=== PATIENT | male | born 1985 | race Caucasian/White ===

== ENCOUNTER 2022-05-15 07:28 | Emergency (ER) | payer BC ==
[~2022-05-15] VITALS: Ht 190.5 cm; Wt 99.7 kg
[~2022-05-15 07:28] MED LIST: ACHD5005 PO; DOXY100C2 PO; IBUP800T26 PO; LEVO500T69 PO; ONDA8TAB13 PO; PHEN200T27 PO
--- NOTE | 2022-05-15 07:59 | ED General ---
General Chief Complaint: Dental Problems/Pain Stated Complaint: FACIAL SWELLING Nursing Triage Note: PT TO RM 5 WITH CC OF R SIDE FACIAL SWELLING. PT BELIEVES HAS HAD A TOOTH ABSCESS THAT BEGAN A COUPLE OF DAYS AGO. PT REPORTS FACE SWELLING BEGAIN THIS AM. Source of Information: Patient Exam Limitations: No Limitations (DEVANG RAHMAN MED STUDENT) History of Present Illness Date Seen by Provider: May 15, 2022 Time Seen by Provider: 07:45 Initial Comments Miguel Ángel Zavala is a 36 yo male who presents with right sided facial swelling for the last two days. He has hx of dental abscesses, but no other significant medical hx. Pt reports a few days a go he began to have soreness in his right cheek and over last night he noticed increased swelling, so he came in to ED. Pt reports the pain/pressure in his right upper cheek is a 7/10. He has minimal pain in his jaw. Pt denies injury to this area. Denies any insect bites or stings, but reports he does spend time outside, so he could've been bit by a tick. He has a hx of abscessed teeth and losing his teeth with the last episode being one year ago. Pt reports he previously took abx that he got from his sister for this. Pt denies any tooth pain currently. Denies changes in vision in either eye. Pt denies fever, chills, recent illness or sick contacts, CP, SOA, cough, sinus congestion, sore throat, N/V/D, abdominal pain, dysuria or frequency. Pt reports he still has his tonsils and adenoids. Timing/Duration: 1-2 Days Associated Systoms: No Chest Pain, No Cough, No Fever/Chills; Headaches; No Shortness of Air (DEVANG RAHMAN MED STUDENT) Allergies and Home Medications Allergies Coded Allergies: No Known Drug Allergies (Unverified , 12/23/13) Patient Home Medication List Home Medication List Reviewed: Yes (KILO BOLES MD) Doxycycline Hyclate (Doxycycline Hyclate) 100 Mg Capsule, 1 EACH PO BID Prescribed by: ORTIZ CHIRINOS on 12/23/13 1343 Hydrocodone Bit/Acetaminophen (Lortab 5 Mg Tablet) 1 Each Tablet, 1 EACH PO Q4H PRN for PAIN Prescribed by: ORTIZ CHIRINOS on 12/23/13 1343 Ibuprofen (Ibuprofen) 800 Mg Tablet, 800 MG PO q8h PRN for PAIN Prescribed by: ORTIZ CHIRINOS on 12/23/13 1343 Levofloxacin (Levaquin 500 Mg) 500 Mg Tab, 1 EACH PO DAILY Prescribed by: ORTIZ CHIRINOS on 12/23/13 1343 Ondansetron (Ondansetron Odt) 8 Mg Tab.rapdis, 8 MG PO Q6H PRN for NAUSEA Prescribed by: ORTIZ CHIRINOS on 12/23/13 1343 Penicillin V Potassium (Penicillin V Potassium) 500 Mg Tablet, 500 MG PO QID Prescribed by: KILO BOLES on 05/15/22 0824 Phenazopyridine Hcl (Pyridium) 200 Mg Tablet, 1 EACH PO TID PRN PRN for SPASMS Prescribed by: ORTIZ CHIRINOS on 12/23/13 1343 Review of Systems Review of Systems Constitutional: No chills, No fever EENTM: No blurred vision, No double vision, No eye pain, No vision loss, No dental problems, No mouth pain, No mouth swelling, No nose congestion, No nose pain, No throat pain Respiratory: No cough, No short of breath Gastrointestinal: No abdominal pain, No constipation, No diarrhea, No nausea, No vomiting Genitourinary: No dysuria, No frequency Musculoskeletal: No joint swelling, No muscle pain Skin: No lesions, No lumps, No rash Psychiatric/Neurological: Headache; Denies Numbness, Denies Paresthesia Hematologic/Lymphatic: No Symptoms Reported Immunological/Allergic: no symptoms reported (DEVANG RAHMAN) Past Tzawpvf-Kdfoyl-Lqnuhm Hx Patient Social History Tobacco Use?: Yes Tobacco type used: Cigarettes Smoking Status: Current Everyday Smoker Substance use?: No Alcohol Use?: No Pt feels they are or have been: No (DEVANG RAHMAN STUDENT) Past Medical History Reproductive Disorders: No Hepatitis Adverse Reaction/Blood Tranf: No (DEVANG RAHMAN) Physical Exam Vital Signs Vital Signs - First Documented 05/15/22 07:38 Temp 36.8 Pulse 82 Resp 14 B/P (MAP) 178/125 (142) Pulse Ox 100 O2 Delivery Room Air (KILO BOLES MD) Vital Signs Capillary Refill : Less Than 3 Seconds (DEVANG RAHMAN) Height, Weight, BMI Height: 6'3" Weight: 200lbs. oz. 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 Skin: Normal Color, Warm/Dry Lymphatic: No Adenopathy (DEVANG RAHMAN MED STUDENT) Progress/Results/Core Measures Suspected Sepsis SIRS Temperature: Pulse: 82 Respiratory Rate: 14 Blood Pressure 178 /125 Mean: 142 (DEVANG RAHMAN MED STUDENT) Results/Orders Vital Signs/I&O 05/15/22 05/15/22 07:38 08:31 Temp 36.8 Pulse 82 82 Resp 14 14 B/P (MAP) 178/125 (142) 178/125 Pulse Ox 100 100 O2 Delivery Room Air Room Air (KILO BOLES MD) Vital Signs/I&O Capillary Refill : Less Than 3 Seconds (DEVANG RAHMAN MED STUDENT) Blood Pressure Mean: 142 Progress Note : Time: 08:16 Progress Note 36yo male with right sided facial swelling and right maxiallry discomfort onset in the night. No significant pain. no fevers, chills, nasal drainage or congestion. Has some cavities and a broken molar on that upper right side. Also of note failry significantly elevated blood pressure that has never been addressed. Asymptomatic from that. No airway/swallowing difficulties. Exam remarkable for right upper molar #3 fractured and just lateral to this a little fullness along the gum line/buccal mucosa. No fluctuance or visible edema. a little tender to touch there. I do not believe there is enough fullness to actually drain - will place on antibiotics and have him follow up with his dentist. Precautions to return - if worsening swelling, facial erythema or fever to come back. Patient encouraged to see PCP for BP management. He verbalizes understanding - all questions are sought and answered. (KILO BOLES MD) Departure Impression Primary Impression: Dental abscess Additional Impression: High blood pressure Qualified Codes: I10 - Essential (primary) hypertension Disposition: 01 HOME, SELF-CARE Condition: Stable Departure-Patient Inst. Decision time for Depature: 08:21 (KILO BOLES MD) Referrals: NO,LOCAL PHYSICIAN (PCP/Family) Primary Care Physician Patient Instructions: Tooth Abscess ED, High Blood Pressure in Adults Add. Discharge Instructions: Dawson well and at least twice a day. Use a good oral rinse such as Listerene daily. Antibiotics - Penicillin V 500mg 4 times a day for 10 days. Please finish the entire course. Even when symptoms are improved - continue to finish out the antibiotics. If after 2 full days on the antibiotics, you are having increased swelling, redness or fever come back to the Emergency Department for re-evaluation. Please call for a dental appointment for follow up today. Please see a family doctor for further evaluation and management of you blood pressure. Scripts Penicillin V Potassium (Penicillin V Potassium) 500 Mg Tablet 500 MG PO QID for 10 Days, #40 TAB Prov: KILO BOLES MD 05/15/22 Verification and Attestation of Medical Student E/M Service A medical student performed and documented this service in my presence. I reviewed and verified all information documented by the medical student and made modifications to such information, when appropriate. I personally performed the physical exam and medical decision making. Kilo Boles, May 15, 2022,08:25 (KILO BOLES MD) Images Mouth/Nose 1 - Fracture Tooth, Swelling (KILO BOLES MD) DEVANG RAHMAN A MED STUDENT May 15, 2022 07:59 KILO BOLES MD May 15, 2022 08:23
[2022-05-15] MEDS ORDERED: PENI500T PO (08:24)
[2022-05-15 08:31] VITALS: BP 178/125
== END 2022-05-15 08:31 | disposition home or self-care (01) ==
LOC: EDUNIT# 07:28 → ER 07:29
DX: K04.7 Periapical abscess without sinus (principal); I10 Essential (primary) hypertension; K02.9 Dental caries, unspecified; K03.81 Cracked tooth; F17.210 Nicotine dependence, cigarettes, uncomplicated; Z28.310 Unvaccinated for COVID-19
CPT/HCPCS: 99281